=== PATIENT | male | born 1960 | race African-American/Black ===

== ENCOUNTER 2016-04-11 08:44 | Emergency (ER) | payer OTHER ==
[2016-04-11 08:51] VITALS: TEMP 98.5; BMI 26.6
[2016-04-11] MEDS ORDERED: KETOROLAC TROMETHAMINE 30 MG/1 ML VIAL IVPUSH ONE (08:59)
--- NOTE | 2016-04-11 09:05 | PDOC ---
History of Present Illness - General Chief Complaint: Pain, Acute Stated Complaint: LEFT LEG PAIN Time Seen by Provider: 04/11/16 08:49 - History of Present Illness Initial Comments: 04/11/16 09:00 56-year-old male with a negative past medical history He has no known history of hypertension, and is on no medications at this time NKDA Patient is complaining of 2 weeks of gradually progressive left knee pain, which started in the popliteal fossa, and now has become more diffuse He denies any fall or injury, and states the pain came on spontaneously He denies any fevers or chills, and he denies any redness or warmth He denies any numbness or tingling in his leg He denies any associated hip pain or ankle pain He states he flew in from [place] a few days ago, but his leg started hurting him prior to the flight, while he was still in [place] He denies any weakness in his leg He denies any right lower extremity symptoms He denies any prior history of left knee or left leg problems He denies any other complaints at this time, and the remainder of the review of systems is negative Past History - Past Medical History Allergies/Adverse Reactions: Allergies Allergy/AdvReac Type Severity Reaction Status Date / Time No Known Allergies Allergy Verified 04/11/16 09:03 Home Medications: Ambulatory Orders Lisinopril [Prinivil] 10 mg PO DAILY #30 tablet 04/11/16 Other medical history: DENIES - Psycho/Social/Smoking Cessation Hx Anxiety: No Suicidal Ideation: No Smoking History: Never smoked Hx Alcohol Use: No Drug/Substance Use Hx: No Substance Use Type: None *Physical Exam - Vital Signs Last Vital Signs Temp Pulse Resp BP Pulse Ox 98.5 F 93 H 16 198/127 100 04/11/16 08:45 04/11/16 08:45 04/11/16 08:45 04/11/16 08:45 04/11/16 08:45 - Physical Exam Comments: 04/11/16 09:01 Physical exam Last Vital Signs Temp Pulse Resp BP Pulse Ox 98.5 F 93 H 16 198/127 100 04/11/16 08:45 04/11/16 08:45 04/11/16 08:45 04/11/16 08:45 04/11/16 08:45 GENERAL: The patient is awake, alert, and answering questions HEAD: Normal with no signs of trauma. NECK: Normal range of motion, supple LUNGS: Breath sounds equal, clear to auscultation bilaterally. No wheezes, and no crackles. HEART: Regular rate and rhythm, normal S1 and S2 without murmur, rub or gallop. ABDOMEN: Soft, nontender, EXTREMITIES: Right lower extremity normal Left lower extremity- There is full range of motion of the left hip and left ankle There is no thigh swelling or tenderness, and no calf swelling or tenderness Left knee- There is some swelling and tenderness in the popliteal fossa, as well as some lesser swelling laterally There is some pain on range of motion The cruciates and collaterals are intact The quadriceps tendon is intact There is no warmth or erythema around the knee The dorsalis pedis pulse is intact, and the toes are warm with intact capillary refill and good sensation NEUROLOGICAL: Alert and answering questions, grossly nonfocal neurologic exam PSYCH: Normal mood, normal affect. SKIN: Warm, Dry, ED Treatment Course - LABORATORY CBC & Chemistry Diagram: 04/11/16 10:29 04/11/16 10:30 - RADIOLOGY Radiology Studies Ordered: Category Date Time Status KNEE 3 POS-LEFT [RAD] Stat Radiology 04/11/16 08:59 Ordered DUPLEX VASCUL US-1 LEG [US] Stat Ultrasound 04/11/16 08:58 Ordered Medical Decision Making - Medical Decision Making 04/11/16 09:05 56-year-old male with left leg pain as described His blood pressure is also very high, and he denies any prior history of hypertension Will control pain, and reevaluate blood pressure Will start with a DVT ultrasound an x-ray of the knee, and IV anti-inflammatory Patient given 10 mg of lisinopril by mouth, will reevaluate blood pressure 04/11/16 10:55 Left knee series DJD There is mild soft tissue thickening along the course of the patellar tendon Joint effusion is noted There is also a possible Li's cyst 04/11/16 11:09 DVT ultrasound of the left lower extremity There is no evidence of DVT There is a Li's cyst noted in the left popliteal fossa which contains a calcification 04/11/16 11:21 Laboratory Results - last 24 hr 04/11/16 04/11/16 10:29 10:30 WBC 8.3 RBC 4.46 Hgb 13.2 Hct 40.6 MCV 91.0 MCHC 32.6 RDW 12.5 Plt Count 440 H MPV 8.6 Sodium 137 Potassium 3.9 Chloride 105 Carbon Dioxide 25 Anion Gap 7 L BUN 16 Creatinine 1.2 Creat Clearance w eGFR > 60 Random Glucose 89 Calcium 9.1 Total Bilirubin 0.4 AST 29 ALT 14 Alkaline Phosphatase 73 Total Protein 7.7 Albumin 3.8 04/11/16 12:29 BP 180/100 will discharge to home on lisinopril daily Armani, elevate, warm compresses Patient has an appointment with [facility] orthopedic clinic on Saturday04/16/16-I called and made this appointment for the patient Patient wrapped in Armani, and given cane Ambulatory with armani and cane *DC/Admit/Observation/Transfer Diagnosis at time of Disposition: Li's cyst of knee, Left knee pain, Hypertension - Discharge Dispostion Condition at time of disposition: Stable - Prescriptions Prescriptions: Lisinopril [Prinivil] 10 mg PO DAILY #30 tablet - Patient Instructions Printed Discharge Instructions: Bakers Cyst, DI for Li's Cyst, High Blood Pressure Additional Instructions: Follow-up at [facility] orthopedic clinic on 04/16/16- your appointment is at 9 AM Please come to the main entrance first at 7:30 AM-main building-to apply for [facility] prior to your appointment Please also call the [facility] clinic to make an appointment for internal medicine/primary care, for close follow-up of your blood pressure [phone] Rest and elevate your leg, Armani, warm compresses Motrin or Naprosyn [id number] for discomfort as directed Lisinopril-for your blood pressure-one pill daily every morning Start tomorrow morning as you've gotten your first dose here Please follow-up with a primary care doctor closely as you may need additional blood pressure medications (you may make an appointment at primary care clinic at [facility] Followup internal medicine or primary care as soon as you can Return immediately if you worsen in any way Take your medications as directed - Post Discharge Activity Work/School Note: Back to Work
[2016-04-11] MEDS ORDERED: LISINOPRIL 10 MG TABLET (FP) PO ONE (10:26)
[2016-04-11] MEDS ORDERED: LISINOPRIL 5 MG TABLET (FP) ONE (10:32)
[2016-04-11 10:36] LABS: MCH 29.6 pg (25.7-33.7); MCHC 32.6 g/dl (32.0-35.9); MEAN PLT VOLUME 8.6 fl (7.5-11.1); PLATELET COUNT 440 K/MM3 (134-434); RDW 12.5 % (11.9-15.9); WHITE BLOOD COUNT 8.3 K/mm3 (4.0-10.0)
[2016-04-11 11:07] LABS: ALBUMIN 3.8 g/dl (3.5-5.0); ALK PHOS 73 U/L (32-92); ANION GAP 7 (8-16); BILIRUBIN,TOTAL 0.4 mg/dl (0.2-1.0); CALCIUM 9.1 mg/dl (8.4-10.2); CO2 25 mmol/L (22-28); CREATININE 1.2 mg/dl (0.6-1.3); GLUCOSE,RANDOM 89 mg/dl (74-106); SGOT/AST 29 U/L (10-42); SGPT/ALT 14 U/L (10-40); TOT PROT 7.7 g/dl (6.4-8.3)
[2016-04-11] MEDS ORDERED: LABETALOL HCL 5 MG/1 ML (100MG/20 ML VIAL) IVPUSH ONE (11:47)
[2016-04-11] MEDS ORDERED: LABETALOL HCL 5 MG/1 ML (100MG/20 ML VIAL) ONE (11:48)
[2016-04-11 12:30] VITALS: BP 180/100; PULSE 72
== END 2016-04-11 12:41 | disposition home or self-care (01) ==
LOC: FER 08:44
PROC: 3E0333Z Introduction of Anti-inflammatory into Peripheral Vein, Percutaneous Approach (ICD-10-PCS; principal; 2016-04-11)
PROC: 3E033GC Introduction of Other Therapeutic Substance into Peripheral Vein, Percutaneous Approach (ICD-10-PCS; 2016-04-11)
DX: M71.22 Synovial cyst of popliteal space [Baker], left knee (principal); I10 Essential (primary) hypertension
CPT/HCPCS: 36415; 73562-TC-LT; 80053; 85027; 93971-TC; 99283-25